=== PATIENT | female | born 1930 | race Two or more races ===

== ENCOUNTER 2016-10-01 16:49 | Emergency (ER) | payer MEDICARE, OTHER ==
[~2016-10-01] VITALS: Ht 149.9 cm; Wt 50.0 kg
[~2016-10-01 16:49] MED LIST: ACET-141 PO; ASPI-664 PO; Amlodipine Besylate PO; CARAS PO; CHOL100062 PO; CLON1PAT2 TRANSDERM; DARI15TA3 PO; HYDR-3498 PO; LOSA50TA2 PO; NIT4 SL; UDMYL PO
[2016-10-01 16:52] VITALS: Ht 149.9 cm; Wt 50.0 kg
[2016-10-01] MEDS ORDERED: ONDANSETRON 4 MG INJ IV STA (17:02)
[2016-10-01] MEDS ORDERED: morphine 4 MG/ML VIAL IV STA (17:02)
[2016-10-01] MEDS ORDERED: SOD CHLORIDE 0.9% 1,000 ML IV STA (17:02)
[2016-10-01 17:58] LABS: BASOPHILS % 0.5 % (0.0-2.0); EOSINOPHILS # 0.2 10^3/ul (0.0-0.5); EOSINOPHILS % 3.1 % (0.0-7.0); HEMATOCRIT 41.5 % (37.0-47.0); INR 0.86; LYMPHOCYTES # 1.5 10^3/ul (0.8-2.9); LYMPHOCYTES % 18.3 % (15.0-51.0); MEAN CORPUSCULAR HEMOGLOBIN 29.2 pg (29.0-33.0); MEAN CORPUSCULAR HGB CONC 33.8 g/dl (32.0-37.0); MEAN CORPUSCULAR VOLUME 86.6 fl (82.0-101.0); MEAN PLATELET VOLUME 10.1 fl (7.4-10.4); MONOCYTE # 0.5 10^3/ul (0.3-0.9); MONOCYTES % 6.7 % (0.0-11.0); NEUTROPHIL # 5.7 10^3/ul (1.6-7.5); NEUTROPHILS % 71.4 % (39.0-77.0); PLATELET COUNT 166 10^3/UL (140-440); PROTIME 11.7 Sec (12.2-14.2); PT RATIO 0.9; RED BLOOD COUNT 4.79 10^6/ul (4.20-5.40); RED CELL DISTRIBUTION WIDTH 14.7 % (11.5-14.5)
[2016-10-01 18:10] LABS: CONDITION 1; LH ANALYZER COMMENTS 1
[2016-10-01 18:17] LABS: ALBUMIN 4.7 g/dl (3.3-4.9)
[2016-10-01 18:18] LABS: POTASSIUM 4.8 mmol/L (3.5-5.1)
[2016-10-01 18:20] LABS: ALBUMIN/GLOBULIN RATIO 1.23; BILIRUBIN,INDIRECT 0.1 mg/dl (0-1.1); BILIRUBIN,TOTAL 0.1 mg/dl (0.2-1.3); CREATININE 1.07 mg/dl (0.44-1.00); TOTAL PROTEIN 8.5 g/dl (6.1-8.1)
[2016-10-01 18:21] LABS: CALCIUM 9.9 mg/dl (8.4-10.2)
[2016-10-01 19:34] LABS: ADD UMIC NO; URINE BILIRUBIN (Dip) NEGATIVE (NEGATIVE); URINE BLOOD (Dip) NEGATIVE (NEGATIVE); URINE COLOR LT. YELLOW (YELLOW); URINE GLUCOSE (Dip) NEGATIVE (NEGATIVE); URINE KETONES (Dip) NEGATIVE (NEGATIVE); URINE LEUKOCYTE ESTERASE (Dip) NEGATIVE (NEGATIVE); URINE NITRITE (Dip) NEGATIVE (NEGATIVE); URINE TOTAL PROTEIN (Dip) NEGATIVE (NEGATIVE); URINE UROBILINOGEN (Dip) 0.2 E.U./dL (0.1-1.0)
--- NOTE | 2016-10-01 20:02 | RADRPT ---
PROCEDURE: CT Abdomen and Pelvis without contrast. CLINICAL INDICATION: Abdominal and pelvic pain. TECHNIQUE: CT scan of the abdomen and pelvis without contrast was performed. Coronal and sagittal reformatted images were obtained from the axial source images. Images were reviewed on a [employer] PACS workstation. Total exam DLP is 218.25 mGy-cm. CTDIvol is 4.49 mGy. One or more of the fo [facility] dose reduction techniques were used: Automated exposure control, adjustment of the mA and/or kV according to patient size, use of iterative reconstruction technique. COMPARISON: None. FINDINGS: The lung bases are normal. There is no pleural effusion. The liver is normal in size and attenuation. There is no focal hepatic lesion. Surgical clips are present from previous cholecystectomy. The bile ducts are normal. The spleen is normal in size. There is no focal splenic lesion. Both adrenals are normal with no enlargement or mass. The pancreas is unremarkable with no mass or evidence of pancreatitis. There is no renal mass or calculus. There is mild right hydronephrosis with no obstructing lesion v isualized. There is no left hydronephrosis. The abdominal aorta is not dilated. There is calcification in the aorta consistent with atheroscler osis. There is no retroperitoneal lymphadenopathy or mass. There is no pelvic lymphadenopathy or mass. The bladder and distal ureters are normal. The periappendiceal region is unremarkable with no evidence of appendicitis. The bowel and mesentery are normal. There is no free fluid or free gas. There are degenerative changes of the spine and hips. IMPRESSION: 1. Status post cholecystectomy. 2. Mild right hydronephrosis with no obstructing lesion visualized. 3. Atherosclerosis. 4. Degenerative changes of the spine and hips. 5. Otherwise unremarkable noncontrast CT scan of the abdomen and pelvis. RPTAT: QQ .Luis Enrique Ribeiro MD, MD Date Time Electronically viewed and signed by .Luis Enrique Ribeiro MD, on 10/01/2016 20:02 .R/
[2016-10-01] MEDS ORDERED: NAPR-260 PO (20:14)
--- NOTE | 2016-10-01 20:20 | ERD ---
ER Documentation Chief Complaint Date/Time DATE: 10/01/16 TIME: 20:16 Chief Complaint bibr co l inguinal hernia pain history of HPI 86-year-old woman complaining of inguinal hernia pain and swelling 1 day. She is attempting manual reduction of hernia and states it feels better when she puts pressure on it. She denies fevers or chills, no vomiting, no recent weight loss, no chest pain or shortness of breath, no dysuria. ROS All systems reviewed and are negative except as per history of present illness. Medications Home Meds Active Scripts Naproxen* (Naprosyn*) 500 Mg Tablet, 500 MG PO BID Y for PAIN AND/OR INFLAMMATION, #30 TAB Prov:IGOR MAHER MD 10/01/16 Clonidine Patch (CLONIDINE PATCH) 1 Patch Patch, 1 PATCH TRANSDERM Q7D for 30 Days, 1 Refill Prov:DIAMOND LAST S. 05/18/15 Magaldrate/Simethicone* (Mag-Al Plus Suspension*) 30 Ml Susp, 30 ML PO Q4H Y for GASTROINTESTINAL UPSET for 30 Days, 1 Refill Prov:DIAMOND LAST S. 05/18/15 Sucralfate* (Carafate*) 1 Gm/10 Ml Susp, 1 GM PO QID for 30 Days, 1 Refill Prov:DIAMOND LAST S. 05/18/15 [Amlodipine Besylate] 5 MG TAB No Conflict Check, 10 MG PO DAILY for 30 Days, TAB 1 Refill Prov:DIAMOND LAST S. 05/18/15 Losartan Potassium* (Cozaar*) 50 Mg Tab, 100 MG PO DAILY for 30 Days, 1 Refill Prov:DIAMOND LAST S. 05/18/15 Reported Medications Cholecalciferol* (Vitamin D3*) 1,000 Unit Tablet, 1000 UNIT PO DAILY, TAB 05/11/15 Acetaminophen* (Acetaminophen*) 500 MG Extra Strength Tablet, 1000 MG PO Q6H Y for PAIN AND OR ELEVATED TEMP, TAB 05/11/15 Hydrocodone Bit-Acetaminophen* ([place]*) 5-325 Mg Tab, 1 TAB PO Q6 Y for PAIN, TAB 05/11/15 Nitroglycerin* (Nitrostat*) 0.4 Mg Tab.subl, 0.4 MG SL Q5MIN Y for CHEST PAIN, BOTTLE 05/11/15 Dafifenacin* (Enablex*) 15 Mg Tab.sr.24h, 15 MG PO DAILY, TAB.SA 05/11/15 Aspirin (Low Dose Aspirin) 81 Mg Tablet.dr, 81 MG PO DAILY 05/11/15 Allergies Allergies: Coded Allergies: ampicillin (Verified Allergy, Unknown, 05/11/15) ciprofloxacin (Verified Allergy, Unknown, 05/11/15) erythromycin base (Verified Allergy, Unknown, 05/11/15) gemfibrozil (Verified Allergy, Unknown, 05/11/15) omeprazole (Verified Allergy, Unknown, 05/11/15) penicillin (Verified Allergy, Unknown, 05/11/15) rosuvastatin (Verified Allergy, Unknown, 05/11/15) simvastatin (Verified Allergy, Unknown, 05/11/15) streptomycin (Verified Allergy, Unknown, 05/11/15) PMhx/Soc Hypertension, arthritis, hernia, cholecystitis History of Surgery: Yes (R hip fx ORIF 1981,hardware removal 3 yrs after, cholecystec.,hysterectomy) Anesthesia Reaction: No Hx Neurological Disorder: No Hx Respiratory Disorders: Yes (ASTHMA) Hx Cardiac Disorders: Yes (CVD; HTN; CHF) Hx Psychiatric Problems: No Hx Miscellaneous Medical Probl: Yes (partial SBO,inguinal hernia, atherosclerosis,DJD,Htn,dementia,gastritis) Hx Alcohol Use: No Hx Substance Use: No Hx Tobacco Use: No Smoking Status: Never smoker FmHx Family History: No diabetes Physical Exam Vitals Vital Signs Date Time Temp Pulse Resp B/P Pulse Ox O2 Delivery O2 Flow Rate FiO2 10/01/16 19:00 82 22 152/56 98 Room Air 10/01/16 17:21 80 18 170/76 99 Room Air 10/01/16 16:52 98.4 75 18 175/68 98 Physical Exam GENERAL: Well-developed, well-nourished, well-hydrated, mild pain HEENT: Dry mucous membranes, pink conjunctiva, no cervical spine tenderness or step-off deformities, no goiter, no jaundice or icterus, extraocular movements intact without pain. No submandibular induration, and no pharyngeal erythema NEURO: Alert and oriented 3, cranial nerves II through XII intact bilaterally, pupils equal round reactive to light, no focal deficits or facial asymmetry, sensation intact distally Strength 5/5 in upper and lower extremities bilaterally CARDIAC: Regular rate and rhythm, no murmurs rubs or gallops LUNGS: Clear bilaterally no wheezing crackles or stridor ABDOMEN: Soft nontender, no guarding, no rigidity, no rebound, no psoas sign no obturator sign. Normoactive bowel sounds SKIN: Warm and dry to touch, no abrasions, contusions, or hematomas, no lacerations, no ecchymosis, no target lesions, and without ulcers EXTREMITIES: No clubbing cyanosis or edema, calves are bilaterally symmetrical, no Homans sign, no popliteal cord sign. Distal pulses equal and bilateral PSYCH: Normal affect without agitation or irritability Result Diagram: 10/01/16 1740 10/01/161739 Results 24 hrs Laboratory Tests Test 10/01/16 17:40 10/01/16 18:50 Alanine Aminotransferase (ALT/SGPT) 35IU/L Albumin 4.7g/dl Albumin/Globulin Ratio 1.23 Alkaline Phosphatase 84IU/L Anion Gap 19 Aspartate Amino Transf (AST/SGOT) 39IU/L Basophils # 0.010^3/ul Basophils % 0.5% Blood Morphology Comment Blood Urea Nitrogen 20mg/dl Calcium Level 9.9mg/dl Carbon Dioxide Level 27mmol/L Chloride Level 104mmol/L Creatinine 1.07mg/dl Direct Bilirubin 0.00mg/dl Eosinophils # 0.210^3/ul Eosinophils % 3.1% Globulin 3.80g/dl Glucose Level 98mg/dl Hematocrit 41.5% Hemoglobin 14.0g/dl INR International Normalized Ratio 0.86 Indirect Bilirubin 0.1mg/dl Lipase 199U/L Lymphocytes # 1.510^3/ul Lymphocytes % 18.3% Mean Corpuscular Hemoglobin 29.2pg Mean Corpuscular Hemoglobin Concent 33.8g/dl Mean Corpuscular Volume 86.6fl Mean Platelet Volume 10.1fl Monocytes # 0.510^3/ul Monocytes % 6.7% Neutrophils # 5.710^3/ul Neutrophils % 71.4% Nucleated Red Blood Cells # 0.010^3/ul Nucleated Red Blood Cells % 0.0/100WBC Platelet Count 48155^3/UL Potassium Level 4.8mmol/L Prothrombin Time 11.7Sec Prothrombin Time Ratio 0.9 Red Blood Count 4.7910^6/ul Red Cell Distribution Width 14.7% Sodium Level 145mmol/L Total Bilirubin 0.1mg/dl Total Protein 8.5g/dl White Blood Count 8.010^3/ul Urine Bilirubin NEGATIVE Urine Clarity CLEAR Urine Color LT. YELLOW Urine Glucose NEGATIVE% Urine Hemoglobin NEGATIVE Urine Ketones NEGATIVE Urine Leukocyte Esterase NEGATIVE Urine Nitrite NEGATIVE Urine Specific Neversink 1.010 Urine Total Protein NEGATIVE Urine Urobilinogen 0.2 E.U./dL Urine pH 6.0 Current Medications Medications (Trade) Dose Ordered Sig/Raul Route PRN Reason Start Time Stop Time Status Last Admin Dose Admin Sodium Chloride (NS) 1,000 ml @ 1,000 mls/hr Q1H STAT IV 10/01/16 17:02 10/01/16 18:01 DC 10/01/16 17:20 Morphine Sulfate (morphine) 4 mg ONCE STAT IV 10/01/16 17:02 10/01/16 17:03 DC 10/01/16 17:21 Ondansetron HCl (Zofran Inj) 4 mg ONCE STAT IV 10/01/16 17:02 10/01/16 17:03 DC 10/01/16 17:20 Oxycodone/ Acetaminophen (Percocet (5/ 325)) 1 tab ONCE ONCE PO 10/01/16 20:30 10/01/16 20:31 Procedures/MDM IV line was established patient was placed on pvc monitor rhythm strip revealed a sinus rhythm at about 70 bpm with upright P and T waves. Patient was afebrile. I administered 1 L normal saline intravenously, morphine 4 mg IV, and Zofran 4 mg IV with good effect. For later discomfort patient received Percocet 1 tablet p.o. CBC was unremarkable, electrolytes revealed dehydration with a BUN/creatinine of 20/1, liver function tests were normal, troponin was negative, urine analysis was negative for infection. CT scan of the abdomen and pelvis was performed there was no acute inflammatory or infectious pathology noted, no obvious hernia mass noted. Please refer to radiologist dictation for full report. During my initial exam there was a soft small periumbilical hernia palpated by me, it was easily reducible and there was no signs of strangulation, rigidity, or tenderness to touch. I suspect I reduce this hernia prior to CT imaging. Differential diagnoses considered, included but not limited to acute coronary syndrome, pulmonary embolism, aortic dissection, abdominal aortic aneurysm, sepsis, stroke, meningitis, encephalitis, pneumonia, appendicitis, cholecystitis , bowel obstruction, pyelonephritis, nephrolithiasis, cystitis, as well as metabolic, hematologic, and electrolyte abnormalities. As well as abscess, cellulitis, fractures, and dislocations. Patient feels much better at this time, and vital signs are normal, symptoms have improved. I did give strict instructions to return to the ED if symptoms continue or worsen, patient will otherwise follow-up with primary care physician. Patient understood instructions and agreed to plan. Departure Diagnosis: Primary Impression: Abdominal pain Abdominal location: lower abdomen, unspecified Qualified Code: R10.30 - Lower abdominal pain Additional Impression: Hypertension Hypertension type: essential hypertension Qualified Code: I10 - Essential hypertension Condition: Good Patient Instructions: Abdominal Pain IGOR MAHER MD Oct 01, 2016 20:20
[2016-10-01] MEDS: OXYCODONE/ACETAMINOPHEN (5/325) TAB PO ONE ×2 (20:37→20:39)
[2016-10-01 21:41] VITALS: BP 140/82; PULSE 63; RESP 17
== END 2016-10-01 21:44 | disposition home or self-care (01) ==
LOC: E/R 16:49
DX: R10.30 Lower abdominal pain, unspecified (principal); I10 Essential (primary) hypertension; J45.909 Unspecified asthma, uncomplicated; I50.9 Heart failure, unspecified; Z79.82 Long term (current) use of aspirin
CPT/HCPCS: 74176; 80053; 81003; 83690; 85025; 85610; J2270; J2405; J7030; 36415; 96374; 96375; P9612